=== PATIENT | male | born 1975 | race Caucasian/White ===

== ENCOUNTER 2020-04-09 19:44 | Emergency (ER) | payer BC ==
[~2020-04-09] VITALS: Ht 165.1 cm; Wt 113.4 kg
[~2020-04-09 19:44] MED LIST: POTASSIUM; TOPROL
[2020-04-09 19:50] VITALS: BP_SYST 150
[2020-04-09] MEDS ORDERED: LIDOCAINE 1% 10 MG/ML, 20 ML MDV INJ ONE (20:15)
[2020-04-09] MEDS ORDERED: DIPH-TET-PERTUS Vaccine 0.5 ML VIAL (ADACEL) I.M. ONE (20:15)
[2020-04-09] MEDS ORDERED: BACITRACIN 1 GM OINT TP ONE (20:15)
[2020-04-09] MEDS ORDERED: IBUP-1971 PO (20:24)
[2020-04-09 21:07] VITALS: BP_SYST 150
== END 2020-04-09 21:09 | disposition home or self-care (01) ==
LOC: SED 19:44
DX: L60.0 Ingrowing nail (principal); N28.9 Disorder of kidney and ureter, unspecified; I11.0 Hypertensive heart disease with heart failure; I50.9 Heart failure, unspecified; E78.5 Hyperlipidemia, unspecified; Z88.0 Allergy status to penicillin
CPT/HCPCS: 99284